=== PATIENT | female | born 1990 | race American Indian/Alaskan Native ===

== ENCOUNTER 2022-11-10 12:13 | Inpatient (IN) | payer MEDICAID ==
[2022-11-10 13:17] LABS: HEMATOCRIT 26.6 % (37.0-47.0); HEMOGLOBIN 7.8 g/dL (12.0-16.0); MEAN CORPUSCULAR HEMOGLOBIN 23.5 pg (27.0-34.0); MEAN CORPUSCULAR HGB CONC 29.3 g/dL (33.0-35.0); MEAN CORPUSCULAR VOLUME 80.1 fL (80-100); RED BLOOD CELL COUNT 3.32 10^6/uL (4.2-5.4); WHITE BLOOD CELL COUNT,WBC 7.4 10^3/uL (5.0-10.0)
[2022-11-10 13:29] LABS: APPEARANCE,URINE CLEAR (CLEAR); BILIRUBIN,URINE NEGATIVE (NEGATIVE); COLOR,URINE YELLOW (YELLOW); GLUCOSE,URINE NEGATIVE (NEGATIVE); KETONES,URINE NEGATIVE (NEGATIVE); LEUKOCYTE ESTERASE,URINE NEGATIVE (NEGATIVE); NITRITE,URINE NEGATIVE (NEGATIVE); OCCULT BLOOD,URINE MODERATE (NEGATIVE); PH,URINE 6.5 (5.0-9.0); PROTEIN,URINE TRACE (NEGATIVE); UROBILINOGEN,URINE 0.2 mg/dL (0.2-1.0)
[2022-11-10 13:34] LABS: AMPHETAMINES,URINE NEGATIVE (NEGATIVE); BARBITURATES,URINE NEGATIVE (NEGATIVE); BENZODIAZEPINE,URINE NEGATIVE (NEGATIVE); MDMA (ECSTASY), URINE NEGATIVE (NEGATIVE); METHADONE,URINE NEGATIVE (NEGATIVE); METHAMPHETAMINES,URINE NEGATIVE (NEGATIVE); OPIATES,URINE NEGATIVE (NEGATIVE); OXYCODONE,URINE NEGATIVE (NEGATIVE); PHENCYCLIDINE,URINE NEGATIVE (NEGATIVE); TCA,URINE NEGATIVE (NEGATIVE)
[2022-11-10 13:41] LABS: CREATININE 0.67 mg/dL (0.55-1.02); EST CRCL DRUG DOSING (CG) 116.14 mL/min
[2022-11-10 13:42] LABS: CREATININE,URINE RAND 75.01 mg/dL (No establ ref range); PROTEIN CREATININE RATIO,URINE 401.3 mg/g (<150.0); PROTEIN,URINE RANDOM 30.1 mg/dL (0.0-11.9)
[2022-11-10] MEDS ORDERED: Citric Acid/Sodium Citrate Solution 30 ML Cup PO ONE (15:16)
[2022-11-10] MEDS ORDERED: ceFAZolin 2 GM Vial IVPUSH ONE (15:16)
[2022-11-10] MEDS ORDERED: Misoprostol 400 MCG (4 X 100 MCG TAB) RECTAL ONE (15:16)
[2022-11-10] MEDS ORDERED: Tranexamic Acid 1,000 MG in Sodium Chloride 0.9% 100 ML IV PRN ×2 (15:16→22:05)
[2022-11-10] MEDS ORDERED: Carboprost Tromethamine 250 MCG/1 ML Amp IM PRN ×2 (15:16→22:05)
[2022-11-10] MEDS ORDERED: Oxytocin 10 Units/1 ML SDV IM PRN (15:16)
[2022-11-10] MEDS ORDERED: Methylergonovine 0.2 MG Tab PO PRN (15:16)
[2022-11-10] MEDS ORDERED: Sodium Chloride 0.9% 10 ML Syringe FLUSH PRN (15:16)
[2022-11-10] MEDS ORDERED: Oxytocin/Normal Saline 30 UNIT/500 ML BAG ONE (15:30)
[2022-11-10] MEDS ORDERED: Lactated Ringers 1,000 ML IV SCH ×2 (15:30→22:15)
[2022-11-10] MEDS ORDERED: Oxytocin/Normal Saline 30 UNIT/500 ML BAG IV SCH (15:30)
[2022-11-10] MEDS ORDERED: Ketorolac 30 MG/ML SDV IVPUSH ONE (15:42)
[2022-11-10] MEDS ORDERED: Tranexamic Acid 1,000 MG/10 ML Vial IV ONE (15:42)
[2022-11-10] MEDS ORDERED: Morphine PF 10 MG/10 ML SDV IV ONE (15:42)
[2022-11-10] MEDS ORDERED: Dexamethasone 4 MG/ML SDV IV ONE (15:42)
[2022-11-10] MEDS ORDERED: Ondansetron 4 MG/2 ML SDV IV ONE (15:42)
[2022-11-10] MEDS ORDERED: Lactated Ringers 1,000 ML IV ONE (15:42)
[2022-11-10] MEDS: Lactated Ringers 1,000 ML IV SCH (21:36)
[2022-11-10] MEDS: Benzocaine/Cetylpyridinium/Menthol Lozenge MUCMEM PRN (21:52)
[2022-11-10] MEDS: Sodium Chloride 0.9% 10 ML Syringe FLUSH SCH (22:02)
[2022-11-10] MEDS ORDERED: Naloxone 2 MG/2 ML Syringe IVPUSH PRN (22:05)
[2022-11-10] MEDS ORDERED: Docusate Sodium 100 MG Cap PO PRN (22:05)
[2022-11-10] MEDS ORDERED: Acetaminophen/oxyCODONE 325-5 MG Tab PO PRN (22:05)
[2022-11-10] MEDS ORDERED: Acetaminophen 325 MG Tab PO PRN (22:05)
[2022-11-10] MEDS ORDERED: Misoprostol 400 MCG (4 X 100 MCG TAB) RECTAL PRN (22:05)
[2022-11-10] MEDS ORDERED: ePHEDrine 50 MG/ML SDV IVPUSH PRN (22:05)
[2022-11-10] MEDS ORDERED: Ondansetron 4 MG/2 ML SDV IVPUSH PRN (22:05)
[2022-11-10] MEDS ORDERED: Methylergonovine 0.2 MG/1 ML Amp IM PRN (22:05)
[2022-11-10] MEDS ORDERED: diphenhydrAMINE 50 MG/ML SDV IVPUSH PRN (22:05)
[2022-11-10] MEDS: Ketorolac 30 MG/ML SDV IVPUSH SCH (22:34)
[2022-11-10 23:31] LABS: HEMOGLOBIN 8.1 g/dL (12.0-16.0); MEAN CORPUSCULAR HEMOGLOBIN 24.1 pg (27.0-34.0); MEAN CORPUSCULAR VOLUME 80.4 fL (80-100); RED BLOOD CELL COUNT 3.36 10^6/uL (4.2-5.4); WHITE BLOOD CELL COUNT,WBC 7.4 10^3/uL (5.0-10.0)
[2022-11-10 23:38] LABS: AMPHETAMINES,URINE NEGATIVE (NEGATIVE); BARBITURATES,URINE NEGATIVE (NEGATIVE); BENZODIAZEPINE,URINE NEGATIVE (NEGATIVE); MDMA (ECSTASY), URINE NEGATIVE (NEGATIVE); METHADONE,URINE NEGATIVE (NEGATIVE); METHAMPHETAMINES,URINE NEGATIVE (NEGATIVE); OPIATES,URINE POSITIVE (NEGATIVE); OXYCODONE,URINE NEGATIVE (NEGATIVE); PHENCYCLIDINE,URINE NEGATIVE (NEGATIVE); TCA,URINE NEGATIVE (NEGATIVE)
[2022-11-11] MEDS: Benzocaine/Cetylpyridinium/Menthol Lozenge MUCMEM PRN (03:24)
[2022-11-11] MEDS: Ketorolac 30 MG/ML SDV IVPUSH SCH ×2 (04:01→11:12)
[2022-11-11] MEDS: Lactated Ringers 1,000 ML IV SCH (05:48)
[2022-11-11] MEDS: Prenatal Multivitamin with Calcium/Folic Acid/Iron Tab PO SCH (08:42)
[2022-11-11] MEDS: Simethicone 80 MG Tab.Chew PO SCH ×4 (08:42→22:19)
[2022-11-11] MEDS: Ibuprofen 800 MG Tab PO PRN ×2 (11:08→19:09)
[2022-11-11] MEDS: Acetaminophen/oxyCODONE 325-5 MG Tab PO PRN (13:56)
[2022-11-11] MEDS: Sodium Chloride 0.9% 10 ML Syringe FLUSH SCH ×2 (14:27→22:19)
[2022-11-12] MEDS: Acetaminophen/oxyCODONE 325-5 MG Tab PO PRN (00:28)
[2022-11-12] MEDS: Prenatal Multivitamin with Calcium/Folic Acid/Iron Tab PO SCH (07:20)
[2022-11-12] MEDS: Simethicone 80 MG Tab.Chew PO SCH (07:21)
[2022-11-12] MEDS: Ibuprofen 800 MG Tab PO PRN (07:21)
[2022-11-12 07:25] VITALS: BP 141/88; PULSE 74
[2022-11-12 11:46] LABS: C.TRACHOMATIS BY TMA Negative (Negative); N.GONORRHOEAE BY TMA Negative (Negative); SOURCE Urine
[2022-11-13 14:46] LABS: HBSAG SCREEN Negative (Negative)
== END 2022-11-12 11:00 | disposition home or self-care (01) | DRG 788 ==
LOC: DL.ED 12:13 → DL.OB 15:15 → OBSVTOIN 16:18
PROVIDERS: ADMIT Family Medicine; ATTEND Family Medicine
PROC: 10D00Z1 Extraction of Products of Conception, Low, Open Approach (ICD-10-PCS; principal; 2022-11-10)
DX: O14.94 Unspecified pre-eclampsia, complicating childbirth (principal); O34.211 Maternal care for low transverse scar from previous cesarean delivery; O99.324 Drug use complicating childbirth; F12.90 Cannabis use, unspecified, uncomplicated; O99.334 Smoking (tobacco) complicating childbirth; O99.02 Anemia complicating childbirth; D50.9 Iron deficiency anemia, unspecified; F17.210 Nicotine dependence, cigarettes, uncomplicated; Z37.0 Single live birth; Z3A.39 39 weeks gestation of pregnancy
CPT/HCPCS: 01961; 36415; 36430; 51702; 76815; 80305-QW; 81003; 82565; 82570; 83615; 84156; 84450; 84460; 84520; 84550; 85027; 86592; 86762; 86803; 86850; 86900; 86901; 86920; 86922; 87077; 87081; 87186; 87340; 87389; 87491; 87591; 93970; 99284; 99285; A9270-GY; J1100; J1885; J2270; J2405; J2590; J3490; J7120; P9016

== ENCOUNTER 2023-04-21 20:04 | Emergency (ER) | payer MEDICAID ==
[2023-04-21 20:32] VITALS: BP 133/97; PULSE 91
[2023-04-21] MEDS ORDERED: Amoxicillin/Clavulanate K 875-125 MG Tab PO ONE (20:41)
[2023-04-21] MEDS ORDERED: Take Home: Lidocaine 2% Viscous Solution 15 ML UD, 2 Cup Pack PO ONE (20:41)
[2023-04-21] MEDS ORDERED: Lidocaine 2% Jelly 10 ML Urojet MUCMEM ONE (20:55)
== END 2023-04-21 21:05 | disposition home or self-care (01) ==
LOC: DL.ED 20:04
DX: K02.9 Dental caries, unspecified (principal); F17.210 Nicotine dependence, cigarettes, uncomplicated
CPT/HCPCS: 99282; A9270-GY

== ENCOUNTER 2023-07-14 09:35 | Emergency (ER) | payer MEDICAID ==
[2023-07-14] MEDS ORDERED: Naloxone 2 MG/2 ML Syringe ONE (09:41)
[2023-07-14] MEDS: Sodium Chloride 0.9% 1,000 ML IV ONE (09:53)
[2023-07-14 09:55] LABS: BASOPHILS PERCENT AUTO 0.2 % (0.0-1.0); EOSINOPHILS PERCENT AUTO 3.2 % (1.0-3.0); HEMATOCRIT 39.4 % (37.0-47.0); LYMPHOCYTES PERCENT AUTO 28.3 % (20.5-50.1); MEAN CORPUSCULAR HEMOGLOBIN 29.1 pg (27.0-34.0); MEAN CORPUSCULAR VOLUME 88.3 fL (80-100); MONOCYTES PERCENT AUTO 6.5 % (2-8); NEUTROPHILS PERCENT AUTO 61.8 % (42.2-75.2); PLATELET COUNT,PLT 331 10^3/uL (150-450); RED BLOOD CELL COUNT 4.46 10^6/uL (4.2-5.4); WHITE BLOOD CELL COUNT,WBC 9.4 10^3/uL (5.0-10.0)
[2023-07-14] MEDS: Naloxone 2 MG/2 ML Syringe IVPUSH ONE (09:55)
[2023-07-14] MEDS: Sodium Chloride 0.9% 10 ML Syringe FLUSH PRN (09:55)
[2023-07-14 10:14] LABS: A/G RATIO 0.9; ALANINE AMINOTRANSFERASE,ALT 14 U/L (14-59); ALBUMIN 3.4 g/dL (3.4-5.0); ALKALINE PHOSPHATASE 90 U/L (46-116); AMYLASE 37 U/L (25-115); ANION GAP 11.3 mEq/L (7-13); ASPARTATE AMNIOTRANSFERASE,AST 9 U/L (15-37); BILIRUBIN TOTAL 0.4 mg/dL (0.2-1.0); BLOOD UREA NITROGEN,BUN 14 mg/dL (7-18); BUN/CREATININE RATIO 18.7 (No establ ref range); CALCIUM 8.8 mg/dL (8.5-10.1); CARBON DIOXIDE,CO2 30 mmol/L (21-32); CHLORIDE,CL 102 mmol/L (98-107); CREATININE 0.75 mg/dL (0.55-1.02); EST CRCL DRUG DOSING (CG) 93.97 mL/min; GLUCOSE RANDOM 106 mg/dL (70-99); LIPASE 15 U/L (16-77); POTASSIUM,K 3.3 mmol/L (3.5-5.1); SODIUM,NA 140 mmol/L (136-145)
[2023-07-14 10:17] LABS: LACTIC ACID 0.7 mmol/L (0.4-2.0)
[2023-07-14 10:18] LABS: C-REACTIVE PROTEIN < 0.50 ng/dL (<=0.50); ESTIMATED GFR 108 mL/min (>=60); ETHANOL BLOOD MEDICAL < 3 mg/dL (0)
[2023-07-14 10:57] LABS: APPEARANCE,URINE CLEAR (CLEAR); BILIRUBIN,URINE NEGATIVE (NEGATIVE); COLOR,URINE YELLOW (YELLOW); GLUCOSE,URINE NEGATIVE (NEGATIVE); KETONES,URINE NEGATIVE (NEGATIVE); LEUKOCYTE ESTERASE,URINE SMALL (NEGATIVE); NITRITE,URINE NEGATIVE (NEGATIVE); OCCULT BLOOD,URINE TRACE-INTACT (NEGATIVE); PH,URINE 7.5 (5.0-9.0); PROTEIN,URINE NEGATIVE (NEGATIVE); UROBILINOGEN,URINE 0.2 mg/dL (0.2-1.0)
[2023-07-14 11:02] LABS: BARBITURATES,URINE NEGATIVE (NEGATIVE); BENZODIAZEPINE,URINE NEGATIVE (NEGATIVE); MDMA (ECSTASY), URINE NEGATIVE (NEGATIVE); METHADONE,URINE NEGATIVE (NEGATIVE); METHAMPHETAMINES,URINE POSITIVE (NEGATIVE); OPIATES,URINE NEGATIVE (NEGATIVE); PHENCYCLIDINE,URINE NEGATIVE (NEGATIVE); TCA,URINE NEGATIVE (NEGATIVE)
[2023-07-14 11:03] LABS: AMPHETAMINES,URINE POSITIVE (NEGATIVE); OXYCODONE,URINE NEGATIVE (NEGATIVE)
[2023-07-14 11:29] VITALS: BP 118/73; PULSE 71
[2023-07-14 11:50] LABS: EPITHELIAL CELLS,URINE FEW /HPF (NOT SEEN); RBC,URINE 0-5 /HPF (0-5); WBC,URINE 20-30 /HPF (0-5/HPF)
[2023-07-14 11:51] LABS: AMORPHOUS SEDIMENT,URINE FEW /HPF (NOT SEEN); BACTERIA,URINE MODERATE /HPF (0-FEW/HPF); MUCUS,URINE FEW /LPF (NOT SEEN)
[2023-07-15 10:47] LABS: C.TRACHOMATIS BY TMA Positive (Negative); M GENITALIUM Negative (Negative); M GENITALIUM SOURCE Urine; N.GONORRHOEAE BY TMA Negative (Negative); SOURCE Urine
== END 2023-07-14 12:23 | disposition home or self-care (01) ==
LOC: DL.ED 09:35
DX: R10.9 Unspecified abdominal pain (principal); F19.10 Other psychoactive substance abuse, uncomplicated
CPT/HCPCS: 36415; 80053; 80305-QW; 80307; 81001; 82150; 82947; 83605; 83690; 84145; 84703; 85025; 86140; 87086; 87088; 87186; 87491; 87563; 87591; 96361; 96374; 99284; 99284-25; J2310; J3490; J7030